=== PATIENT | male | born 1975 | race Caucasian/White ===

== ENCOUNTER 2019-05-08 09:56 | Emergency (ER) | payer OTHER ==
[~2019-05-08] VITALS: Ht 180.3 cm; Wt 88.5 kg
[2019-05-08] MEDS ORDERED: NAPROXEN250 MG (10:16)
[2019-05-08] MEDS ORDERED: ZYRTEC10 MG (10:16)
== END 2019-05-08 10:45 | disposition home or self-care (01) ==
LOC: ER 09:56
DX: M79.18 Myalgia, other site (principal)